=== PATIENT | male | born 1995 | race Caucasian/White ===

== ENCOUNTER 2021-02-13 08:26 | Emergency (ER) | payer BC, OTHER ==
--- NOTE | 2021-02-13 09:05 | EDM.PDOC ---
ED HPI GENERAL MEDICAL PROBLEM - General Chief Complaint: Skin Complaint Stated Complaint: LOWER BACK PAIN Time Seen by Provider: 02/13/21 08:51 Source of Information: Reports: Patient, RN Notes Reviewed - History of Present Illness INITIAL COMMENTS - FREE TEXT/NARRATIVE: 25 yr old male has pain very low back, inner crease L upper buttock, started about 5 days ago, getting worse. No drainage. Has not had this before. Upper Buttock Pain Score (Numeric/FACES): 5 - Related Data Allergies Allergy/AdvReac Type Severity Reaction Status Date / Time No Known Allergies Allergy Verified 02/13/21 08:40 Home Meds: Home Meds . [No Known Home Meds] 02/13/21 [History] Past Medical History - Past Health History Medical/Surgical History: Denies Medical/Surgical History Social & Family History - Tobacco Use Tobacco Use Status *Q: Never Tobacco User ED ROS GENERAL - Review of Systems Review Of Systems: See Below Constitutional: Denies: Fever, Chills HEENT: Reports: No Symptoms Respiratory: Reports: No Symptoms Cardiovascular: Reports: No Symptoms GI/Abdominal: Reports: No Symptoms Musculoskeletal: Reports: Back Pain (low back), Other (2 small areas of rash inner crease L upper buttock) Skin: Reports: Other (skin otherwise completely clear) ED EXAM, SKIN/RASH Exam: See Below General Appearance: Alert, No Apparent Distress Head: Atraumatic Neck: Supple Respiratory/Chest: No Respiratory Distress Back Exam: Other (2 very small macular areas of erythema crease of L upper buttock, no visible or palpable mass or swellinging, very mild localized tenderness) Neurological: Alert, Oriented Course - Vital Signs Last Recorded V/S: Last Vital Signs Temp 97.5 F 02/13/21 08:42 Pulse 97 02/13/21 08:42 Resp 18 02/13/21 08:42 BP 127/74 02/13/21 08:42 Pulse Ox 100 02/13/21 08:42 Departure - Departure Time of Disposition: 09:03 Disposition: Home, Self-Care 01 Condition: Fair Clinical Impression: Folliculitis - Discharge Information Instructions: Folliculitis Referrals: Margaret Longoria PA-C [Primary Care Provider] - Forms: ED Department Discharge Additional Instructions: Warmm soaks as best you can 2 to 3 times daily. Cephalexin 500 mg 4 times daily for 1 week or until gone. You may alternate tylenol and ibuprofen as needed. Have rechecked in 3 to 5 days if not better or if symptoms worsening in any way. Sepsis Event Note (ED) - Evaluation Sepsis Screening Result: No Definite Risk - Focused Exam Vital Signs: Vital Signs Temp Pulse Resp BP Pulse Ox 02/13/21 08:42 97.5 F 97 18 127/74 100
== END 2021-02-13 09:15 | disposition home or self-care (01) ==
LOC: JD.ED 08:26
DX: L73.9 Follicular disorder, unspecified (principal)
CPT/HCPCS: 99283